=== PATIENT | male | born 1985 ===

== ENCOUNTER 2017-11-16 17:33 | Emergency (ER) | payer OTHER ==
[2017-11-16 17:35] VITALS: BMI 29.8
[2017-11-16 17:50] VITALS: BP 139/88; PULSE 69; RESP 16; TEMP 98.5; O2SAT 98
--- NOTE | 2017-11-16 18:29 | ED PDOC ---
Arrival/HPI - General Chief Complaint: High Blood Pressure Time Seen by Provider: 11/16/17 17:49 Historian: Patient - History of Present Illness Narrative History of Present Illness (Text): 11/16/17 18:25 This 32 yo male who denies pmh presents to this ED c/o feeling fatigue, sleepy x 6 months. Patient stated he has been worry about his health, since his younger brother was Dx. DM x 2 months ago, and his father from a stroke in his late 50's due to uncontrolled HTN. He believes he is hypertensive and diabetic. Patient denies TENORIO, diplopia, dysarthria, dizziness, sob, cp, palpitation, MARMOLEJO, abdominal pain, urinary symptoms, SI, HI, paranoia, hallucination, illegal drug use, alcohol abuse, recent travel, trauma, or abnormal gait. Time/Duration: Other (see hpi) Context: Home Past Medical History - Provider Review Nursing Documentation Reviewed: Yes - Infectious Disease Hx of Infectious Diseases: None - Tetanus Immunization Tetanus Immunization: Up to Date - Psychiatric Hx Psychophysiologic Disorder: No Hx Depression: No Hx Emotional Abuse: No Hx Physical Abuse: No Hx Substance Use: No - Suicidal Assessment Feels Threatened In Home Enviroment: No Family/Social History - Physician Review Nursing Documentation Reviewed: Yes Family/Social History: Other (noncontributory) Smoking Status: Never Smoked Hx Alcohol Use: Yes Frequency of alcohol use: Socially Hx Substance Use: No Hx Substance Use Treatment: No Allergies/Home Meds Allergies/Adverse Reactions: Allergies No Known Allergies Allergy (Verified 11/16/17 17:42) Home Medications: Home Meds Medication Instructions Recorded Confirmed No Known Home Med 11/16/17 11/16/17 Review of Systems - Review of Systems Constitutional: Fatigue. absent: Weight Change, Fevers Eyes: Normal ENT: Normal Respiratory: Normal. absent: SOB, Cough Cardiovascular: Normal. absent: Chest Pain, Palpitations Gastrointestinal: Normal. absent: Abdominal Pain, Nausea Genitourinary Male: Normal. absent: Dysuria, Frequency, Hematuria Musculoskeletal: Normal. absent: Back Pain, Neck Pain Skin: Normal. absent: Rash Neurological: Normal. absent: Headache, Dizziness, Focal Weakness, Gait Changes , Speech Changes, Facial Droop, Disequilibrium, Seizure Endocrine: Normal Hemo/Lymphatic: Normal Psychiatric: Normal. absent: Anxiety, Depression, Suicidal Ideation Physical Exam Vital Signs Temp Pulse Resp BP Pulse Ox 11/16/17 17:49 98.5 F 69 16 139/88 98 Temperature: Afebrile Blood Pressure: Normal Pulse: Regular Respiratory Rate: Normal Appearance: Positive for: Well-Appearing, Non-Toxic, Comfortable Pain Distress: None Mental Status: Positive for: Alert and Oriented X 3 - Systems Exam Head: Present: Atraumatic, Normocephalic Pupils: Present: PERRL Extroacular Muscles: Present: EOMI Conjunctiva: Present: Normal Mouth: Present: Moist Mucous Membranes Neck: Present: Normal Range of Motion, Trachea Midline. No: Meningeal Signs Respiratory/Chest: Present: Clear to Auscultation, Good Air Exchange. No: Respiratory Distress, Accessory Muscle Use Cardiovascular: Present: Regular Rate and Rhythm, Normal S1, S2. No: Murmurs Abdomen: Present: Normal Bowel Sounds. No: Tenderness, Distention, Peritoneal Signs Back: Present: Normal Inspection Upper Extremity: Present: Normal Inspection. No: Cyanosis, Edema Lower Extremity: Present: Normal Inspection. No: Edema Neurological: Present: GCS=15, CN II-XII Intact, Speech Normal, Motor Func Grossly Intact, Normal Sensory Function, Normal Cerebellar Funct, Gait Normal Skin: Present: Warm, Dry, Normal Color. No: Rashes Psychiatric: Present: Alert, Oriented x 3, Normal Insight, Normal Concentration Medical Decision Making ED Course and Treatment: 11/16/17 20:03 Re-evaluation. Patient feels better. Discussed results and plan with patient who expresses understanding. All questions answered and there is agreement with the plan to discharge home with instructions. Patient stable for discharge. Return if symptoms persist or worsen. Patient was recommended to f/u PMD or clinic for further evaluation, labs. Return to emergency if new symptoms arise. Re-evaluation Time: 20:03 Reassessment Condition: Re-examined, Improved - Lab Interpretations Lab Results: 11/16/17 19:00 11/16/17 19:00 Lab Results 11/16/17 19:20: Urine Color Yellow, Urine Appearance Clear, Urine pH 6.5, Ur Specific Magnolia <= 1.005, Urine Protein Negative, Urine Glucose (UA) Negative, Urine Ketones Negative, Urine Blood Negative, Urine Nitrate Negative, Urine Bilirubin Negative, Urine Urobilinogen 0.2, Ur Leukocyte Esterase Negative 11/16/17 19:00: Sodium 143, Potassium 3.8, Chloride 103, Carbon Dioxide 27, Anion Gap 17, BUN 14, Creatinine 0.9, Est GFR ( Amer) > 60, Est GFR (Non- Af Amer) > 60, Random Glucose 97, Calcium 9.7, Total Bilirubin 0.4, AST 51, ALT 52, Alkaline Phosphatase 123, Total Protein 8.2, Albumin 4.5, Globulin 3.8, Albumin/Globulin Ratio 1.2 11/16/17 19:00: WBC 10.4, RBC 5.40, Hgb 15.6, Hct 45.5, MCV 84.3, MCH 28.9, MCHC 34.3, RDW 14.1, Plt Count 351, MPV 11.4 H, Gran % 62.5, Lymph % (Auto) 30.4 , Lipscomb % (Auto) 4.5, Eos % (Auto) 2.4, Baso % (Auto) 0.2, Gran # 6.47, Lymph # ( Auto) 3.2, Lipscomb # (Auto) 0.5, Eos # (Auto) 0.3, Baso # (Auto) 0.02 I have reviewed the lab results: Yes Interpretation: All labs normal Disposition/Present on Arrival - Present on Arrival Any Indicators Present on Arrival: No History of DVT/PE: No History of Uncontrolled Diabetes: No Urinary Catheter: No History of Decub. Ulcer: No History Surgical Site Infection Following: None - Disposition Have Diagnosis and Disposition been Completed?: Yes Diagnosis: Fatigue Disposition: HOME/ ROUTINE Disposition Time: 20:05 Patient Plan: Discharge Condition: GOOD Discharge Instructions (ExitCare): Fatigue (DC) Additional Instructions: Llame a daley doctor or clinica para seguimiento medico en 1-2 juarez. Felipa suficiente agua, tenga etta buena dieta balanceada. Evite alcohol or cigarillos. Regrese a la emergencia si le da dolor de edna, dolor de pecho, dolor de abdomen, fiebre, problema orinando, dificultad al respira. Referrals: PCP,NO [Primary Care Provider] - Follow up with primary [facility] [Outside] - Follow up with primary [facility] [Outside] - Follow up with primary Forms: Quire (Slovenian)
[2017-11-16 19:17] LABS: BASO # 0.02 K/mm3 (0.0-2.0); BASO % 0.2 % (0.0-3.0); EOS # 0.3 (0.0-0.7); EOS % 2.4 % (1.5-5.0); GRAN # 6.47 (1.4-6.5); GRAN % 62.5 % (50.0-68.0); HEMOGLOBIN 15.6 g/dL (14.0-18.0); LYMPH # 3.2 (1.2-3.4); LYMPH % 30.4 % (22.0-35.0); MEAN CELL VOLUME 84.3 fl (80.0-105.0); MEAN CORPUSCULAR HEMOGLOBIN 28.9 pg (25.0-35.0); MEAN CORPUSCULAR HGB CONC 34.3 g/dl (31.0-37.0); MEAN PLATELET VOLUME 11.4 fl (7.0-11.0); MONO # 0.5 (0.1-0.6); MONO % 4.5 % (1.0-6.0); RBC 5.4 10^6/uL (3.5-6.1); RED CELL DISTRIBUTION WIDTH 14.1 % (11.5-14.5); WHITE BLOOD COUNT 10.4 10^3/ul (4.5-11.0)
[2017-11-16 19:27] LABS: ALB/GLOB RATIO 1.2 (1.1-1.8); ALBUMIN 4.5 g/dL (3.0-4.8); ALT/SGPT 52 U/L (7-56); AST/SGOT 51 U/L (17-59); BLOOD UREA NITROGEN 14 mg/dL (7-21); CALCIUM 9.7 mg/dL (8.4-10.5); GFR AFRICAN-AMERICAN > 60; GFR NON-AFRICAN AMERICAN > 60
[2017-11-16 19:47] LABS: PH,URINE 6.5 (4.7-8.0); URINE BILIRUBIN NEGATIVE (NEGATIVE); URINE BLOOD NEGATIVE (NEGATIVE); URINE GLUCOSE (UA) NEGATIVE (NEGATIVE); URINE LEUKOCYTE ESTERASE NEGATIVE Leu/uL (NEGATIVE); URINE NITRATE NEGATIVE (NEGATIVE); URINE PROTEIN NEGATIVE mg/dL (<30 mg/dL); URINE UROBILINOGEN 0.2 E.U./dL (<1 E.U./dL)
[2017-11-16 19:49] LABS: URINE APPEARANCE CLEAR (CLEAR); URINE COLOR YELLOW (YELLOW)
== END 2017-11-16 20:52 | disposition home or self-care (01) ==
LOC: ED 17:33
DX: R53.83 Other fatigue (principal); I10 Essential (primary) hypertension; E11.9 Type 2 diabetes mellitus without complications; Z82.3 Family history of stroke

== ENCOUNTER 2018-01-24 16:45 | Emergency (ER) | payer OTHER ==
[2018-01-24 17:15] VITALS: BMI 31.6
[2018-01-24 17:17] VITALS: RESP 18; TEMP 98.4
--- NOTE | 2018-01-24 18:01 | ED PDOC ---
Arrival/HPI - General Chief Complaint: Abnormal Skin Integrity Time Seen by Provider: 01/24/18 17:22 Historian: Patient - History of Present Illness Narrative History of Present Illness (Text): 01/24/18 17:55 Pt is a 32 yo male with no pmh presents to this ED c/o having a small sore on the right inner thigh for the past 2 days. Patient states he noticed the sore had a 'head' on it and tried to express it with a needle but only had a sml amount of sanguineous fluid released. Patient denies fever, chills, LAD, testicular pain, change in urine sob, cp, palpitation, MARMOLEJO, abdominal pain, SI, HI, paranoia, hallucination, illegal drug use, alcohol abuse, recent travel, trauma. Time/Duration: Prior to Arrival Symptom Onset: Gradual Symptom Course: Unchanged Quality: Pressure Severity Level: 3 Activities at Onset: Rest Past Medical History - Provider Review Nursing Documentation Reviewed: Yes - Travel History Have you recently traveled outside [place] w/in the past 3 mons?: No - Past History Past History: No Previous - Infectious Disease Hx of Infectious Diseases: None - Tetanus Immunization Tetanus Immunization: Up to Date - Psychiatric Hx Psychophysiologic Disorder: No Hx Depression: No Hx Emotional Abuse: No Hx Physical Abuse: No Hx Substance Use: No - Suicidal Assessment Feels Threatened In Home Enviroment: No Family/Social History - Physician Review Nursing Documentation Reviewed: Yes Family/Social History: Unknown Family HX Smoking Status: Never Smoked Hx Alcohol Use: Yes Hx Substance Use: No Hx Substance Use Treatment: No Allergies/Home Meds Allergies/Adverse Reactions: Allergies No Known Allergies Allergy (Verified 11/16/17 17:42) Review of Systems - Review of Systems Systems not reviewed;Unavailable: Language Barrier (jamaican only) Constitutional: Normal Eyes: Normal ENT: Normal Respiratory: Normal Cardiovascular: Normal Gastrointestinal: Normal Genitourinary Male: Normal Musculoskeletal: Normal Skin: Normal, Abscess (right proximal and medial thigh,) Neurological: Normal Endocrine: Normal Hemo/Lymphatic: Normal Psychiatric: Normal Physical Exam Vital Signs Reviewed: Yes Vital Signs Temp Pulse Resp BP Pulse Ox 01/24/18 19:44 72 18 138/79 99 01/24/18 18:14 69 18 138/89 100 01/24/18 16:46 98.4 F 76 18 143/103 H 100 Temperature: Afebrile Blood Pressure: Hypertensive Pulse: Regular Respiratory Rate: Normal Appearance: Positive for: Well-Appearing, Non-Toxic, Comfortable Pain Distress: Mild Mental Status: Positive for: Alert and Oriented X 3 - Systems Exam Head: Present: Atraumatic, Normocephalic Pupils: Present: PERRL Extroacular Muscles: Present: EOMI Conjunctiva: Present: Normal Mouth: Present: Moist Mucous Membranes Neck: Present: Normal Range of Motion Respiratory/Chest: Present: Clear to Auscultation, Good Air Exchange. No: Respiratory Distress, Accessory Muscle Use Cardiovascular: Present: Regular Rate and Rhythm, Normal S1, S2. No: Murmurs Abdomen: No: Tenderness, Distention, Peritoneal Signs Back: Present: Normal Inspection Upper Extremity: Present: Normal Inspection. No: Cyanosis, Edema Lower Extremity: Present: Normal Inspection. No: Edema Neurological: Present: GCS=15, CN II-XII Intact, Speech Normal, Motor Func Grossly Intact Skin: Present: Warm, Dry, Normal Color, Abscess (right proximal and medial thigh , 2cm in diameter). No: Rashes Psychiatric: Present: Alert, Oriented x 3, Normal Insight, Normal Concentration Medical Decision Making ED Course and Treatment: 01/24/18 18:01 Impression Pt is a 32 yo male with no pmh presents to this ED c/o having a small sore on the right inner thigh for the past 2 days. On exam, there is a 2cm raised lesion on the proximal and medial aspect of the right inner thigh; there is denseness to palpation around the base of the lesion but the surface is fluctuated. No surrounding erythema or purulent material draining Plan I&D assess and dispo Progress Note 01/24/18 18:46 Performed by the emergency provider Indication: Abscess Location: on the right proximal inner thigh Preparation: The area was prepped and draped in the usual sterile fashion and was cleansed with chlorhexadine.~ Local infiltration of Lidocaine 1% was used for anesthesia.~ Procedure: ~The most fluctuant portion of the abscess was incised with a #18G needle. ~ Approximately 2 mL of sanguinous fluid was obtained.~ A dressing was applied. ~ Post-Procedure: ~On exam the abscess was less fluctuant~ The patient tolerated the procedure well, and there were no complications. Cultured: No Dispo home with Bactroban ointment and f/u with [facility] in [place] as pt has no PMD 01/24/18 18:56 Disposition/Present on Arrival - Present on Arrival Any Indicators Present on Arrival: Yes History of DVT/PE: No History of Uncontrolled Diabetes: No Urinary Catheter: No History Surgical Site Infection Following: None - Disposition Have Diagnosis and Disposition been Completed?: Yes Diagnosis: Abscess, Boil Disposition: HOME/ ROUTINE Disposition Time: 18:50 Patient Plan: Discharge Condition: GOOD Discharge Instructions (ExitCare): Boil Additional Instructions: Danny, thank you for letting us take care of you today. Your provider was ANGIE Kan. You were treated for a boil. The emergency medical care you received today was directed at your acute symptoms. If you were prescribed any medication , please fill it and take as directed. It may take several days for your symptoms to resolve. Return to the Emergency Department if your symptoms worsen , do not improve, or if you have any other problems. Please apply the Bactroban ointment daily, along with warm compresses and see your doctor in the next 2 days Please contact your doctor or call one of the physicians/clinics you have been referred to that are listed on the Patient Visit Information form that is included in your discharge packet. Bring any paperwork you were given at discharge with you along with any medications you are taking to your follow up visit. Our treatment cannot replace ongoing medical care by a primary care provider (PCP) outside of the emergency department. Thank you for allowing the [facility] team to be part of your care today. Prescriptions: Mupirocin 2% Cream [Bactroban Cream] 30 applic EXT Q8 10 Days #1 tube Referrals: PCP,NO [Primary Care Provider] - Follow up with primary [facility] [place] [facility] [Outside] - Follow up with primary Forms: Doorman (Guyanese)
[2018-01-24 19:44] VITALS: BP 138/79; PULSE 72; O2SAT 99
== END 2018-01-24 19:44 | disposition home or self-care (01) ==
LOC: ED 16:45
DX: L02.415 Cutaneous abscess of right lower limb (principal); L02.425 Furuncle of right lower limb